=== PATIENT | male | born 1980 | race Caucasian/White ===

== ENCOUNTER 2017-02-05 13:55 | Emergency (ER) | payer MEDICAID, SELFPAY | END 2017-02-05 16:45 | disposition left against medical advice (07) | LOC: M ED 13:55 | DX: Z53.21 Procedure and treatment not carried out due to patient leaving prior to being seen by health care provider (principal) ==

== ENCOUNTER 2017-02-18 11:51 | Inpatient (IN) | payer SELFPAY ==
[~2017-02-18] VITALS: Ht 170.2 cm; Wt 61.0 kg
[2017-02-18] MEDS ORDERED: KETOROLAC 30 MG/ML VIAL (J1885) IV ONE (13:45)
[2017-02-18 14:12] LABS: BASO # 0.1 10^3/uL (0.0-0.2); BASO % 0.4 % (0.0-1.0); EOS # 0.1 10^3/uL (0.0-0.50); EOS % 0.6 % (0.0-3.0); IMMATURE GRANULOCYTE % 0.4 % (0-0); LYMPH # 2.1 10^3/uL (1.5-4.5); LYMPH % 11.7 % (24.0-44.0); MEAN CORPUSCULAR HEMOGLOBIN 31.9 pg (27.0-33.0); MEAN CORPUSCULAR HGB CONC 33.9 g/dl (32.0-36.5); MONO # 1.1 10^3/uL (0.0-0.8); MONO % 5.9 % (0.0-5.0); NEUTROPHILS # 14.5 10^3/uL (1.8-7.7); PLATELET COUNT, AUTOMATED 426 10^3/uL (150-450); WHITE BLOOD COUNT 17.9 10^3/uL (4.0-10.0)
[2017-02-18 14:18] LABS: ALBUMIN/GLOBULIN RATIO 1.08 (1.00-1.93); ALKALINE PHOSPHATASE 73 U/L (45-117); ALT/SGPT 42 U/L (12-78); ANION GAP 9 MEQ/L (8-16); AST/SGOT 34 U/L (7-37); BILIRUBIN,DIRECT 0.1 MG/DL (0.0-0.2); BILIRUBIN,TOTAL 0.5 MG/DL (0.2-1.0); BLOOD UREA NITROGEN 9 MG/DL (7-18); CALCIUM LEVEL 9.4 MG/DL (8.5-10.1); CARBON DIOXIDE LEVEL 25 MEQ/L (21-32); CHLORIDE LEVEL 104 MEQ/L (98-107); CREATININE FOR GFR 0.93 MG/DL (0.70-1.30); GLOMERULAR FILTRATION RATE > 60.0 (>60); GLUCOSE, FASTING 96 MG/DL (70-105); POTASSIUM SERUM 4.1 MEQ/L (3.5-5.1); SODIUM LEVEL 138 MEQ/L (136-145); TOTAL PROTEIN 7.7 GM/DL (6.4-8.2)
[2017-02-18] MEDS ORDERED: ISOVUE-370 76% 100ML VIAL (Q9967) As Ordered ONE (14:28)
--- NOTE | 2017-02-18 14:48 | REP ---
Clinical: Chest pain. Technique: PA and lateral. Findings: Large right pneumothorax is appreciated without significant mediastinal shift. Left hemithorax appears clear. Skeletal structures are intact. Impression: Large right pneumothorax without significant mediastinal shift at the time of evaluation. Findings were immediately discussed with emergency room. Signed by Cristhian Banda MD 02/18/2017 02:39 P
[2017-02-18] MEDS ORDERED: ONDANSETRON 4MG/2ML VIAL (J2405) IV ONE (15:00)
[2017-02-18] MEDS ORDERED: MORPHINE 4 MG/ML 1ML SYRINGE IV ONE (15:00)
--- NOTE | 2017-02-18 15:09 | REP ---
Clinical: Right chest pain. Technique: Axial contrast enhanced images from the thoracic inlet to the upper abdomen using 100 ml Isovue 370 intravenous contrast material with coronal and sagittal re-formations. Findings: A large right tension pneumothorax of approximately 70% is appreciated with mild contralateral mediastinal shift. Left apical and paramediastinal bullae are identified measuring up to 3 cm and ruptured right-sided bullae may be responsible for the pneumothorax. Left lung demonstrates mild compressive changes with subtle diffuse ground-glass density. No pleural effusion. Tracheobronchial tree is relatively patent. Pulmonary vasculature, thoracic aorta and heart/pericardium appear relatively normal. Surrounding musculoskeletal structures are intact and without evidence for acute injury. Impression: Large right tension pneumothorax of approximately 70% with mild contralateral mediastinal shift. Findings may be secondary to ruptured bulla as multiple left apical and paramediastinal bullae are identified measuring up to 3 cm. Left lung demonstrates secondary compressive type changes without further abnormality. Signed by Cristhian Banda MD 02/18/2017 03:02 P
--- NOTE | 2017-02-18 15:12 | REP ---
Clinical: Acute right-sided abdominal pain. Technique: Axial contrast enhanced images from the lung bases to the pubic symphysis using 100 ml Isovue 370 intravenous contrast material with coronal and sagittal re-formations. Findings: A large right tension pneumothorax is appreciated with mild contralateral mediastinal shift. Visualized heart and pericardium are normal. Liver, spleen, pancreas, gallbladder, bilateral adrenal glands and kidneys are normal. The enteric system is without obstruction or acute inflammatory process. The pelvis demonstrates normal bladder and age appropriate prostate/seminal vesicles. No ascites. No free air. No adenopathy. Musculoskeletal structures are intact without evidence for acute fracture. Impression: 1. Large right tension pneumothorax with mild contralateral mediastinal shift. Findings were reported to the emergency room at the time of initial x-ray evaluation. 2. No acute abdominopelvic pathology appreciated. Signed by Cristhian Banda MD 02/18/2017 03:05 P
[2017-02-18] MEDS ORDERED: LIDOCAINE 1% MDV 20ML VIAL As Ordered ONE (15:20)
[2017-02-18] MEDS ORDERED: MIDAZOLAM INJ 2 MG/2 ML VIAL (J2250) As Ordered ONE (15:28)
[2017-02-18] MEDS ORDERED: LIDOCAINE 1% MDV 20ML VIAL SC ONE (16:00)
[2017-02-18] MEDS ORDERED: MIDAZOLAM INJ 2 MG/2 ML VIAL (J2250) IV ONE (16:00)
--- NOTE | 2017-02-18 16:32 | REP ---
PORTABLE CHEST: AP portable view of the chest was performed. There is placement of a right chest tube. Previously noted large right pneumothorax has resolved. Cardiomediastinal silhouette appears unremarkable. IMPRESSION: Resolution of right pneumothorax. Right chest tube in place. Signed by Oracio Leal MD 02/18/2017 08:11 P
--- NOTE | 2017-02-18 16:43 | RO ---
DATE OF PROCEDURE: PREPROCEDURE DIAGNOSIS: Right pneumothorax. POSTPROCEDURE DIAGNOSIS: Right pneumothorax. PROCEDURE: Insertion of right thoracostomy tube. SURGEON: Dr. Westley Bloom COORDINATOR [employer] SERVICES: ANESTHESIA: Local with 1% Xylocaine. The patient was given 2 mg of intravenous Versed and 2 mg of intravenous morphine prior to the procedure. Procedure was performed emergently and verbal consent was obtained from the patient. DESCRIPTION OF PROCEDURE: After the patient was placed in the left lateral decubitus position, the right hemithorax was then prepped and draped in the usual sterile manner. Area was anesthetized with 1% Xylocaine. This anesthesia was carried through the subcuticular tissues to the periosteum and underlying rib and through the intercostal musculature. Using a #10 blade, an incision was made over rib. Using curved forceps, blunt dissection was carried to the intercostal musculature. The intercostal musculature was then traversed. A good gtz of air was noted. A #20 chest tube was then placed. This was hooked to Pleur-evac with good cycling. The tube was then sutured in place. Sterile dressings applied. The patient tolerated the procedure well. Chest x-ray done immediately postprocedure showed complete reexpansion of the right lung completed to the chest wall.
[2017-02-18] MEDS ORDERED: ceFAZolin 1GM INJ (J0690) IM SCH (16:45)
[2017-02-18] MEDS: NS 1,000 ML IV SCH (16:57)
[2017-02-18] MEDS: PERCOCET 5MG/325MG TAB PO PRN (18:38)
--- NOTE | 2017-02-18 20:07 | HPE ---
DATE OF ADMISSION: 02/18/2017 CHIEF COMPLAINT: Right sided abdominal and chest pain. HISTORY OF PRESENT ILLNESS: Mr. High is a pleasant 36-year-old gentleman who is a long time tobacco abuser. He works for a local [employer] company. He smokes about a pack a day. Social alcohol at best. Today, while driving his daughter to school, he had acute onset of right-sided discomfort. This progressed throughout the day, he became more short of breath, and presented to the emergency room (ER). He was found to have a near complete right-sided pneumothorax. ALLERGIES TO MEDICATIONS: None. PAST MEDICAL HISTORY: Unremarkable. SOCIAL HISTORY: Lives here in the [facility] with a roommate. Tobacco as outlined above. Social alcohol at best. FAMILY HISTORY: Father of lung cancer. REVIEW OF SYSTEMS: As per the history of present illness (HPI), though: CONSTITUTIONAL: Negative for any recent fevers or chills. HEENT: Unremarkable for double vision or blurry vision. PULMONARY: As per HPI. CARDIAC: Unremarkable for any angina. GASTROINTESTINAL (GI): Remarkable for nausea and vomiting. GENITOURINARY (): Unremarkable for dysuria or urgency. NEUROLOGIC: Unremarkable for seizures or strokes. ENDOCRINE: Unremarkable for diabetes or thyroid disease. HEMATOLOGIC: Unremarkable for bleeding dyscrasias. MUSCULOSKELETAL: Unremarkable for any new arthralgias or myalgias. ALLERGIC/IMMUNOLOGIC: Unremarkable. PSYCHIATRIC: Unremarkable. PHYSICAL EXAMINATION: At the time of my arrival showed a gentleman who appears his stated age in some moderate discomfort. Heart rate 45-50 with a sinus mechanism. Blood pressure between 118-124 systolic and he was diaphoretic. Respiratory rate about 18-20. HEENT: Otherwise normocephalic and atraumatic. Pupils did react. Sclerae are clear. Trachea is midline. CHEST: Shows the right chest to have absence of breath sounds, diffusely hyper-resonate to percussion, no subcutaneous crepitus. Left chest was clear. CARDIAC EXAM: Bradycardic, but regular. Peripheral pulses are palpable. No edema. ABDOMEN: Thin, soft, nontender with active bowel sounds. No obvious organomegaly or masses. EXTREMITIES: No cyanosis or clubbing. NEUROLOGIC: He is awake, alert, and appropriate. PSYCHIATRIC: Normal mood and affect. Chest x-ray and CT scan show complete collapse of the right lung without any significant mediastinal shift at this point. LABORATORY DATA: Sodium 138, potassium 4.1, chloride 104, CO2 25, BUN 9, creatinine 0.93, glucose 96, white blood cell count 17.9, hemoglobin 15.8, platelet count 426,000, 81% segmented neutrophils, no bands. EKG done in the emergency room (ER) shows a sinus bradycardia. I cannot discount an incomplete bundle on the right. IMPRESSION: Spontaneous right pneumothorax now with diaphoresis. PLAN: At this point, we will proceed with emergent placement of a right-sided chest tube. The verbal consent was obtained from the patient. This was dictated under separate cover. Tube was placed without difficulty and chest x-ray showed complete expansion of the right lung to the chest wall. No obvious leak. He will be admitted to the progressive care unit (PCU). He will be treated with maintenance IV fluids, pain control, and empiric antimicrobials. We had a long discussion regarding smoking cessation. I will repeat a CT scan of his chest to assess for significant blebs or other anatomic issues. He will be here more than two midnights. Further recommendations will be made in the progress record as new information becomes available.
[2017-02-18] MEDS ORDERED: ONDANSETRON 4MG/2ML VIAL (J2405) IV PRN (21:30)
[2017-02-18 21:45] VITALS: BP 101/57
[2017-02-18] MEDS: CEFAZOLIN SOD 1 GM in APPROPRIATE DILUENT 1 EA IV SCH (22:59)
[2017-02-19] VITALS: BP 114/58
[2017-02-19] MEDS ORDERED: ceFAZolin 1GM INJ (J0690) IV SCH (00:45)
[2017-02-19] MEDS: PERCOCET 5MG/325MG TAB PO PRN ×4 (01:37→20:10)
[2017-02-19 04:00] VITALS: BP 114/58
[2017-02-19 05:04] LABS: BASO % 0.2 % (0.0-1.0); IMMATURE GRANULOCYTE % 0.5 % (0-0); LYMPH # 1.5 10^3/uL (1.5-4.5); LYMPH % 5.6 % (24.0-44.0); MEAN CORPUSCULAR HEMOGLOBIN 31.6 pg (27.0-33.0); MEAN CORPUSCULAR HGB CONC 33.8 g/dl (32.0-36.5); MEAN CORPUSCULAR VOLUME 93.6 fl (80.0-96.0); MONO # 0.9 10^3/uL (0.0-0.8); MONO % 3.4 % (0.0-5.0); NEUTROPHILS # 23.4 10^3/uL (1.8-7.7); NEUTROPHILS % 90.3 % (36.0-66.0); PLATELET COUNT, AUTOMATED 396 10^3/uL (150-450); WHITE BLOOD COUNT 25.9 10^3/uL (4.0-10.0)
[2017-02-19 05:19] LABS: ANION GAP 8 MEQ/L (8-16); BLOOD UREA NITROGEN 13 MG/DL (7-18); CALCIUM LEVEL 9.1 MG/DL (8.5-10.1); CARBON DIOXIDE LEVEL 25 MEQ/L (21-32); CHLORIDE LEVEL 104 MEQ/L (98-107); CREATININE FOR GFR 0.92 MG/DL (0.70-1.30); GLOMERULAR FILTRATION RATE > 60.0 (>60); GLUCOSE, FASTING 115 MG/DL (70-105); POTASSIUM SERUM 4.4 MEQ/L (3.5-5.1); SODIUM LEVEL 137 MEQ/L (136-145)
[2017-02-19] MEDS: CEFAZOLIN SOD 1 GM in APPROPRIATE DILUENT 1 EA IV SCH ×3 (06:39→21:40)
[2017-02-19 08:00] VITALS: BP 127/71
[2017-02-19] MEDS: NS 1,000 ML IV SCH ×2 (08:00→19:40)
[2017-02-19] MEDS: ENOXAPARIN 30 MG/0.3 ML SYR (J1650) SC SCH (08:17)
--- NOTE | 2017-02-19 08:30 | ECGEPIP ---
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
[2017-02-19] MEDS: NICOTINE 14 MG/24 HR TRANSDERMAL TD SCH (09:00)
[2017-02-19] MEDS: PANTOPRAZOLE 40MG TAB (PROTONIX) PO SCH (09:11)
[2017-02-19] MEDS: ACETAMINOPHEN 500 MG TAB PO PRN ×2 (09:12→19:03)
[2017-02-19 12:07] VITALS: BP 115/66
--- NOTE | 2017-02-19 14:56 | REP ---
CT CHEST WITHOUT IV CONTRAST: CT chest is performed without IV contrast. Comparison is made with prior CT angiogram of the chest 02/18/2017. Previously noted pneumothorax has almost completely resolved with placement of a right chest tube located in a right anterior pleural space. There is a tiny residual pneumothorax on the right inferiorly and anteriorly. Mild bibasilar atelectatic changes are present. Tiny right apical pneumothorax is present. There are small right apical parenchymal blebs and bullae. Mild bullous change is also seen medially in right upper lobe. On the left there is a moderate sized bulla along the pulmonary trunk in the left upper lobe. Bullous change is also seen medially in the right apex and other portions of the left upper lobe. Heart is normal in size. There is no pleural or pericardial effusion. No adenopathy is seen. Visualized upper abdominal structures are grossly unremarkable. IMPRESSION: Right chest tube in place with tiny residual right pneumothorax. Mild bibasilar atelectatic changes. Bilateral bullous changes predominantly medially and superiorly as discussed in detail above. Signed by Oracio Leal MD 02/19/2017 11:58 A
--- NOTE | 2017-02-19 14:57 | REP ---
PORTABLE CHEST: AP portable view of the chest is performed and compared to a prior study 02/18/2017. Right chest tube is again noted. There is a very tiny right apical pneumothorax. Lungs are free of infiltrate. Cardiomediastinal silhouette is unremarkable. Signed by Oracio Leal MD 02/19/2017 04:17 P
[2017-02-19 16:00] VITALS: BP 127/63
[2017-02-19 20:00] VITALS: BP 134/79
[2017-02-20] VITALS (8 sets, daily range): BP systolic 108–130; BP diastolic 42–76
[2017-02-20] MEDS: CEFAZOLIN SOD 1 GM in APPROPRIATE DILUENT 1 EA IV SCH (05:38)
[2017-02-20] MEDS: ACETAMINOPHEN 500 MG TAB PO PRN (05:45)
[2017-02-20] MEDS: NICOTINE 14 MG/24 HR TRANSDERMAL TD SCH ×2 (08:26→11:22)
[2017-02-20] MEDS: ENOXAPARIN 30 MG/0.3 ML SYR (J1650) SC SCH (08:26)
[2017-02-20] MEDS: PANTOPRAZOLE 40MG TAB (PROTONIX) PO SCH (08:26)
[2017-02-20] MEDS: NS 1,000 ML IV SCH (09:25)
--- NOTE | 2017-02-20 10:03 | REP ---
PORTABLE CHEST: AP portable view of the chest is performed. Right chest tube is again noted and there appears to be a very tiny right pneumothorax. No acute infiltrate or other acute finding is seen. Cardiomediastinal silhouette is unchanged. IMPRESSION: Stable exam. Signed by Oracio Leal MD 02/20/2017 05:30 P
[2017-02-20] MEDS: PERCOCET 5MG/325MG TAB PO PRN (11:21)
--- NOTE | 2017-02-20 12:27 | REP ---
PORTABLE CHEST: AP portable view of the chest is performed and compared to prior study of 02/19/2017. Right chest tube appears more inferiorly located on today's exam and there is mild right apical pneumothorax which has increased since prior study. Lungs are unchanged in appearance as is the cardiomediastinal silhouette. Signed by Oracio Leal MD 02/20/2017 05:35 P
[2017-02-20] MEDS ORDERED: MORPHINE 4 MG/ML 1ML SYRINGE As Ordered ONE (12:55)
[2017-02-20] MEDS ORDERED: MORPHINE 4 MG/ML 1ML SYRINGE IV ONE (13:00)
[2017-02-20] MEDS: KETOROLAC 30 MG/ML VIAL (J1885) IV SCH ×2 (13:15→19:48)
--- NOTE | 2017-02-20 13:59 | REP ---
CHEST, TWO VIEWS: Two views of the chest are performed and compared to prior exams, most recent of which is earlier today. There is a small stable right apical pneumothorax. Right chest tube remains in place. The remainder of the study is unchanged. IMPRESSION: Stable exam. Signed by Oracio Leal MD 02/20/2017 05:38 P
[2017-02-21] VITALS (7 sets, daily range): BP systolic 112–143; BP diastolic 60–80
[2017-02-21] MEDS: PERCOCET 5MG/325MG TAB PO PRN (00:03)
[2017-02-21] MEDS: KETOROLAC 30 MG/ML VIAL (J1885) IV SCH ×5 (00:05→23:51)
[2017-02-21] MEDS: MORPHINE 2 MG/ML 1ML SYRINGE IV PRN ×3 (04:13→11:47)
[2017-02-21 06:38] LABS: BASO # 0.1 10^3/uL (0.0-0.2); BASO % 0.8 % (0.0-1.0); EOS # 0.4 10^3/uL (0.0-0.50); EOS % 3.6 % (0.0-3.0); IMMATURE GRANULOCYTE % 0.5 % (0-0); LYMPH # 3.5 10^3/uL (1.5-4.5); LYMPH % 32.5 % (24.0-44.0); MEAN CORPUSCULAR HEMOGLOBIN 31.8 pg (27.0-33.0); MEAN CORPUSCULAR HGB CONC 33.1 g/dl (32.0-36.5); MEAN CORPUSCULAR VOLUME 96.1 fl (80.0-96.0); MONO # 0.9 10^3/uL (0.0-0.8); MONO % 7.8 % (0.0-5.0); NEUTROPHILS # 5.9 10^3/uL (1.8-7.7); NEUTROPHILS % 54.8 % (36.0-66.0); PLATELET COUNT, AUTOMATED 324 10^3/uL (150-450); WHITE BLOOD COUNT 10.8 10^3/uL (4.0-10.0)
--- NOTE | 2017-02-21 07:24 | CR ---
DATE OF CONSULTATION: 02/20/2017 Patient is seen at the request of Dr. Bloom for assumption of care for spontaneous pneumothorax relieved with a chest tube. HISTORY OF PRESENT ILLNESS: Patient is a 36-year-old white male who on Tuesday morning was driving his daughter to school and who then developed sudden onset of chest pain and shortness of breath. He made it home and for the next 4 hours became more and more short of breath and presented to the emergency room diaphoretic with a completely collapsed right lung. Dr. Bloom immediately placed a chest tube with complete expansion of the lung. Prior to his episode, there was no cough. No sputum production. He has had no chest pain or chest discomfort prior to the episode. There has been no fever, chills or sweats. No dysphagia. No weight loss. He does not complain of shortness of breath prior to his episode. PAST MEDICAL ILLNESSES: None. PAST SURGERIES: None. MEDICATIONS AT HOME: None. HABITS: Smokes about one pack per day but he has cut back to one-half pack per day of [employer]. Drinks maybe a beer a day. No elicit drugs. EXPOSURES: He has a cat at home. No dogs or birds. He has a positive travel history of [place] and throughout the [facility]. No travel to the [facility] or foreign travel. 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 FAMILY HISTORY: Not relevant. REVIEW OF SYSTEMS: Constitutional: See history of present illness. Eyes: Without diplopia, without transient monocular blindness, without prior jaundice. Nose without epistaxis. Mouth: Has his own teeth and needs repair. Respirations: See history of present illness. Cardiac: See history of present illness. Without orthopnea, paroxysmal nocturnal dyspnea, tachycardia or palpitations prior to the episode. Without peripheral edema or intermittent claudication. Gastrointestinal (GI): Without nausea, vomiting, diarrhea, constipation, melena, hematochezia, abdominal pain or hematemesis. Genitourinary (): Without dysuria, hematuria or history of renal stones. Endocrine: Without diabetes. Without thyroid disease. Neurological: Without paresthesias, paralysis or prior seizures. Psychiatric: Without pathological anxieties, depressions or psychoses. Lymphatics: Without lumps or bumps in the neck, axilla or groin. Hematological: Without prolonged bleeding times. PHYSICAL EXAMINATION: Today his temperature is 99.0 with a heart rate of 54 in sinus rhythm, respiratory rate of 18 without the use of accessory muscles who is 98% saturated on room air and his blood pressure is 108/74. General: Well developed, well nourished white male in no acute distress with a chest tube in his right hemithorax. Head is normocephalic. Eyes: Pupils equal, round, and reactive to light. Extraocular intact. Sclera anicteric. Nose without deformity. Mouth: Has most of his own teeth. Many eroded and decayed. Mucous membranes are pink and moist. Lips and commissures without lesions. There is no thrush. Neck is supple. There is no jugular venous distention. No subcutaneous emphysema. Trachea is midline. There is no thyromegaly, lymphadenopathy. He has 2+ carotids without bruits. Lungs show equal breath sounds on either side with percussion note that is full to the diaphragm. There is no E to A egophony. I hear no wheezes, rhonchi or rales. Cardiac exam is without murmurs, clicks, gallops or rubs. I cannot feel his PMI. S1 and S2 are normal. Abdomen is soft, nontender, bowel sounds are positive. There is no hepatomegaly. No CVA tenderness. There are no aortic or renal bruits. Extremities show no pretibial edema. No calf tenderness. No differential swelling of the upper extremities. Skin is warm, dry and perfused without cyanosis or mottling including that of the nail beds and knees. Neuro shows II through XII intact with gross motor and gross sensation intact. Gait is also intact. Psychiatric shows him to be awake and alert, oriented times three with appropriate mood and affect and conversational. INVESTIGATIONS: His white count today is 25.9 up from 17.9 yesterday. Hemoglobin and hematocrit are 14.8 and 43.8 slightly down from 15.8 and 46.6. His intake and output shows a positivity of 400 mL and this may be secondary to hemodilution. His platelet count is 396 and his differential shows 90% neutrophils, 5% lymphocytes, 4% monocytes. There are no immature forms. No toxic granulations. Electrolytes today are normal with BUN and creatinine of 13 and 0.92, a glucose of 115 and a calcium of 9.1. No blood gases have been done on him. His chest x-ray today shows his lung fully expanded to the chest wall. It is done portably. Surprisingly, I see no subcutaneous emphysema. Review of his CAT scan yesterday after placement of the chest tube shows multiple bullae particularly on the left side. He also has multiple blebs throughout the right side with emphysematous changes. There is a small ground glass nodule approximately 3 mm in the right upper lobe. Liver is intact. Adrenals have a normal configuration. There is still some compression atelectasis in the right lower hemithorax in the costophrenic angle. IMPRESSION: 1. Spontaneous pneumothorax. 2. Emphysematous changes. 3. Tobacco abuse. PLAN AND DISCUSSION: His chest tube is already in place. It has migrated into the mid hemothorax after being placed permanently into the apex originally. His costophrenic angles are sharp and there is no subcutaneous emphysema. He did have a one bubble air leak today and therefore I have kept the tube off suction. I have counseled him extensively on tobacco use and he is committed to stopping smoking. I have explained to him that if he stops leaking, we will pull the tube and let him go home with a one in three chance of it happening again. If it happens a second time, we will be committed to the operating room. There is a problem with insurance and he is very worried about the financial implications of this admission. He has refused the Lovenox deep venous thrombosis (DVT) prophylaxis. I will start him on incentive spirometry and acapella for lung expansion. Dr. Bloom has asked me to assume care and I am glad to do so. We will keep him off suction and ambulate him today. If there is no air leak tomorrow, I will remove the chest tube tomorrow. I will change his x-rays to PA lateral's.
--- NOTE | 2017-02-21 08:22 | REP ---
Clinical: Pneumothorax. Comparison: 02/20/2017. Technique: PA and lateral. Findings: Right-sided chest tube in stable position. Small residual right apical pneumothorax unchanged. Mediastinum and cardiac silhouette are within normal limits. Chronic perihilar and interstitial changes appear stable. No effusion. No consolidation. Skeletal structures intact. Impression: Small stable residual right apical pneumothorax. Signed by Cristhian Banda MD 02/21/2017 08:13 A
[2017-02-21] MEDS: ENOXAPARIN 30 MG/0.3 ML SYR (J1650) SC SCH ×3 (08:47→09:00)
[2017-02-21] MEDS: PANTOPRAZOLE 40MG TAB (PROTONIX) PO SCH (08:47)
[2017-02-21] MEDS: NICOTINE 14 MG/24 HR TRANSDERMAL TD SCH ×3 (08:48→09:00)
--- NOTE | 2017-02-21 13:57 | IPN ---
DATE OF SERVICE: 02/21/2017 Mr. High had an episode yesterday of sharp chest pain. He was brought down to x-ray and at the time, I did not think he had pneumothorax, but in retrospect, he had a small separation at the apex. He was given pain medications and that controlled the pain. He was not particularly short of breath. This morning however, he feels very well. There is no chest pain, no pleuritic pain. He has been off suction for the past 48 hours and there is no air leak. His vital signs show T-max of 98.2 with a heart rate that ranges between 57-52 in sinus rhythm, respiratory rate of 16-18 without the use of accessory muscles who is 96% saturated on room air and has blood pressures ranging between 118-76 to 121/73. His intake and output for the past 24 hours has been recorded as 1740 in and nothing out. He has had a number of voids unmeasured. He weighs 61.2 kg today compared to 60.7 kg yesterday. On physical examination, his lungs show equal bilateral breath sounds. Percussion note is full to the diaphragm. There are no wheezes, rhonchi or rales. Cardiac exam is without murmurs, clicks, gallops or rubs. I cannot feel his PMI. S1 and S2 are normal. Abdomen is soft, nontender, bowel sounds are positive. There is no hepatomegaly. No CVA tenderness. Extremities show no pretibial edema. No calf tenderness. No differential swelling of the upper extremities. Skin is warm, dry and perfused without cyanosis or mottling including that of the nail beds and knees. Neck is supple. There is no jugular venous distention. No subcutaneous emphysema. Trachea is midline. Mouth shows his mucous membranes to be pink and moist. Lips and commissures are without lesions. No thrush. Eyes show his pupils to be equal and reactive. Extraocular motor intact. Sclera anicteric. Neuro shows II through XII intact with gross motor and gross sensation intact. Gait is intact. Psychiatric shows him to be awake and alert, oriented times three with appropriate mood and affect and conversational. His white count today is down to 10.8 from 25.9 yesterday. Hemoglobin and hematocrit are 13.9 and 42 essentially unchanged from yesterday with a platelet count of 324. Differential shows 54% neutrophils, 32% lymphocytes, 7% monocytes. There are no immature forms. No toxic granulations. His electrolytes are normal with a BUN and creatinine of 13 and 0.92 with a calcium of 9.1 and a glucose of 115. His chest x-ray today shows about a 1 cm separation at the cupula of the right chest. Otherwise the lung is fully expanded to the chest wall. There is no subcutaneous emphysema. Chest tube is in the mid lung field. Costophrenic angles are sharp. IMPRESSION: 1. Spontaneous pneumothorax right side. 2. Emphysematous changes. 3. Tobacco abuse. PLAN AND DISCUSSION: I will remove his chest tube today. I have discussed with him the possibility of the pneumothorax recurring in the next 24 hours over the next few months. At this point in time, this is a first time pneumothorax and I am not going to recommend any intervention. I will tentatively plan for discharge in the morning.
--- NOTE | 2017-02-21 14:19 | REP ---
Clinical: Follow up pneumothorax. Comparison: 02/19/2017. Findings: Right apical chest tube in stable position. A minuscule residual right apical pneumothorax cannot be excluded. The lung mcdonald are otherwise well aerated and clear. No effusion. Mediastinum and cardiac silhouette are normal. Skeletal structures are intact. Impression: Cannot exclude a minuscule residual right apical pneumothorax. Signed by Cristhian Banda MD 02/21/2017 02:11 P
[2017-02-21] MEDS: ACETAMINOPHEN 500 MG TAB PO PRN (23:51)
[2017-02-22 04:45] VITALS: BP 120/55
[2017-02-22] MEDS: KETOROLAC 30 MG/ML VIAL (J1885) IV SCH (06:01)
[2017-02-22 06:10] LABS: BASO # 0.1 10^3/uL (0.0-0.2); BASO % 0.5 % (0.0-1.0); EOS # 0.4 10^3/uL (0.0-0.50); EOS % 4.7 % (0.0-3.0); IMMATURE GRANULOCYTE % 0.4 % (0-0); LYMPH # 3.3 10^3/uL (1.5-4.5); LYMPH % 35.5 % (24.0-44.0); MEAN CORPUSCULAR HGB CONC 33.6 g/dl (32.0-36.5); MEAN CORPUSCULAR VOLUME 95.2 fl (80.0-96.0); MONO # 0.8 10^3/uL (0.0-0.8); MONO % 8.4 % (0.0-5.0); NEUTROPHILS # 4.7 10^3/uL (1.8-7.7); NEUTROPHILS % 50.5 % (36.0-66.0); PLATELET COUNT, AUTOMATED 327 10^3/uL (150-450); RED CELL DISTRIBUTION WIDTH 12.6 % (11.5-14.5); WHITE BLOOD COUNT 9.3 10^3/uL (4.0-10.0)
[2017-02-22 08:00] VITALS: BP 130/73
--- NOTE | 2017-02-22 08:50 | REP ---
Clinical: Follow up pneumothorax . Comparison: 02/21/2017 . Technique: PA and lateral. Findings: Small residual right apical pneumothorax appears slightly decreased compared to prior examination. The mediastinum and cardiac silhouette are normal. The lung mcdonald are otherwise clear and without acute consolidation or effusion. The skeletal structures are intact and normal. Impression: 1. Small residual right apical pneumothorax decreased from prior examination. 2. No acute cardiopulmonary process. Signed by Cristhian Banda MD 02/22/2017 08:41 A
[2017-02-22] MEDS: ENOXAPARIN 30 MG/0.3 ML SYR (J1650) SC SCH (09:00)
[2017-02-22] MEDS: NICOTINE 14 MG/24 HR TRANSDERMAL TD SCH (09:00)
[2017-02-22] MEDS: PANTOPRAZOLE 40MG TAB (PROTONIX) PO SCH (09:00)
[2017-02-22 12:00] VITALS: BP 132/79
[2017-02-22] MEDS ORDERED: NICO14PA TD (13:26)
--- NOTE | 2017-02-22 14:59 | DSES ---
DATE OF ADMISSION: 02/18/2017 DATE OF DISCHARGE: 02/22/2017 DISCHARGE DIAGNOSES: 1. Spontaneous right pneumothorax. 2. Emphysema. 3. Tobacco abuse. 4. Right upper lobe nodule of no significance. HOSPITAL COURSE: The patient is a 36-year-old white male who sought medical attention in the emergency room on 02/18/2017 after he had acute onset of right sided chest pain while driving his daughter to school. It became worse with increasing shortness of breath and he presented to the emergency room with a complete pneumothorax on the right side. Dr. Bloom placed a chest tube with immediate reexpansion of the lung. A followup CT scan showed bulla and emphysematous changes throughout his lungs. 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 Considerable time was spent with tobacco abuse counseling and he has undertaken to quit smoking. The chest tube had a small leak for 2-3 days after which it was removed. The lung remained expanded to the chest wall except for a small apical air space, which persisted, and in fact was getting smaller at the time of discharge. The patient is being discharged today on a nicotine patch along with Tylenol or Aleve as needed for pain. He will return to see me in one week with a chest x-ray. He was also found to have a small right upper lobe nodule, which will be followed in three months with a CT scan. The patient has once again been counseled for tobacco cessation. He will followup with Dr. Bloom for the pulmonary nodule in three months with a CT scan.
== END 2017-02-22 13:46 | disposition home or self-care (01) | DRG 143 ==
LOC: M ED 11:51 → M ED INP 16:01 → M PCU 20:34
PROVIDERS: ADMIT Internal Medicine Pulmonary Disease; ATTEND Thoracic Surgery (Cardiothoracic Vascular Surgery)
PROC: 0W9930Z Drainage of Right Pleural Cavity with Drainage Device, Percutaneous Approach (ICD-10-PCS; principal; 2017-02-18)
DX: J93.83 Other pneumothorax (principal); F17.210 Nicotine dependence, cigarettes, uncomplicated; R11.2 Nausea with vomiting, unspecified; J43.9 Emphysema, unspecified; R91.1 Solitary pulmonary nodule

== ENCOUNTER → 2017-03-07 | Outpatient (CLI) | payer SELFPAY ==
[~2017-03-07] MED LIST: NICO14PA TD
--- NOTE | 2017-03-08 04:30 | REP ---
Clinical: Pneumothorax . Comparison: 02/22/2017 . Technique: PA and lateral. Findings: The mediastinum and cardiac silhouette are normal. The lung mcdonald are clear and without acute consolidation, effusion, or pneumothorax. The skeletal structures are intact and normal. Impression: 1. No acute cardiopulmonary process. 2. No residual pneumothorax identified. Signed by Cristhian Banda MD 03/08/2017 04:21 A
== END ==
LOC: M SMT 08:50
PROVIDERS: ATTEND Thoracic Surgery (Cardiothoracic Vascular Surgery)
DX: P25.1 Pneumothorax originating in the perinatal period (principal)

== ENCOUNTER 2019-01-16 12:32 | Emergency (ER) | payer MEDICAID, SELFPAY ==
[~2019-01-16] VITALS: Ht 172.7 cm; Wt 70.5 kg
[2019-01-16 12:32] VITALS: BP 142/89
[2019-01-16] MEDS ORDERED: IBUP-1022 PO (12:50)
[2019-01-16] MEDS ORDERED: ACET-683 PO (12:50)
== END 2019-01-16 15:04 | disposition left against medical advice (07) ==
LOC: M ED 12:32
DX: Z53.21 Procedure and treatment not carried out due to patient leaving prior to being seen by health care provider (principal)

== ENCOUNTER 2021-04-07 11:25 | Inpatient (IN) | payer OTHER, SELFPAY ==
[~2021-04-07] VITALS: Ht 172.7 cm; Wt 63.8 kg
[~2021-04-07 11:25] MED LIST changes: +ACET-683 PO; +IBUP-1022 PO
[2021-04-07] MEDS ORDERED: MORPHINE 2 MG/ML 1ML VIAL (J2270) IV ONE (12:55)
[2021-04-07 13:11] LABS: BASO # 0.1 10^3/uL (0.0-0.2); BASO % 0.2 % (0.0-1.0); HEMATOCRIT 49.3 % (42.0-52.0); HEMOGLOBIN 16.8 g/dl (13.5-17.5); LYMPH # 1.9 10^3/uL (1.5-5.0); LYMPH % 7.8 % (24.0-44.0); MEAN CORPUSCULAR HGB CONC 34.1 g/dl (32.0-36.5); MONO # 2.2 10^3/uL (0.0-0.8); MONO % 9.1 % (2.0-8.0); NEUTROPHILS # 20.1 10^3/uL (1.5-8.5); NEUTROPHILS % 82.3 % (36.0-66.0); PLATELET COUNT, AUTOMATED 495 10^3/uL (150-450); RED BLOOD COUNT 5.42 10^6/uL (4.30-6.10); WHITE BLOOD COUNT 24.4 10^3/uL (4.0-10.0)
[2021-04-07 13:51] LABS: ALBUMIN 5.2 GM/DL (3.2-5.2); BILIRUBIN,DIRECT 0.1 MG/DL (0.0-0.2); BILIRUBIN,TOTAL 0.5 MG/DL (0.2-1.0); CALCIUM LEVEL 10.5 MG/DL (8.5-10.1); CREATININE FOR GFR 3.47 MG/DL (0.70-1.30); GLOMERULAR FILTRATION RATE 21.1 (>60); POTASSIUM SERUM 3.6 MEQ/L (3.5-5.1); RSV AMPLIFICATION NEGATIVE (NEGATIVE); TOTAL PROTEIN 9.1 GM/DL (6.4-8.2)
[2021-04-07] MEDS ORDERED: GASTROGRAFIN SOLUTION 30ML (Q9963) As Ordered ONE (14:26)
[2021-04-07] MEDS: GASTROGRAFIN SOLUTION 30ML PO SCH ×2 (14:30→15:00)
[2021-04-07] MEDS ORDERED: PROMETHAZINE INJ 25 MG/ML VIAL (J2550) IV ONE (16:30)
[2021-04-07] MEDS ORDERED: NS 1,000 ML IV ONE (16:30)
[2021-04-07] MEDS ORDERED: ACETAMINOPHEN TAB 650MG DOSE (2X325MG) PO PRN (17:25)
[2021-04-07] MEDS ORDERED: cefTRIAXone SOD 1 GM in D5W MINI-BAG PLUS 50 ML IV SCH (19:00)
[2021-04-07] MEDS: NS 1,000 ML IV SCH (19:16)
[2021-04-07 22:40] VITALS: BP 109/53
[2021-04-08] MEDS: NS 1,000 ML IV SCH ×2 (01:55→09:14)
[2021-04-08 06:00] VITALS: BP 107/54
[2021-04-08 06:43] LABS: HEMATOCRIT 41.9 % (42.0-52.0); MEAN CORPUSCULAR HEMOGLOBIN 31.5 pg (27.0-33.0); MEAN CORPUSCULAR HGB CONC 34.1 g/dl (32.0-36.5); MEAN CORPUSCULAR VOLUME 92.3 fl (80.0-96.0); RED BLOOD COUNT 4.54 10^6/uL (4.30-6.10); WHITE BLOOD COUNT 12.7 10^3/uL (4.0-10.0)
[2021-04-08 07:04] LABS: HEMOGLOBIN 14.3 g/dl (13.5-17.5); PLATELET COUNT, AUTOMATED 380 10^3/uL (150-450)
[2021-04-08 07:16] LABS: ALBUMIN 3.6 GM/DL (3.2-5.2); ALT/SGPT 31 U/L (12-78); BILIRUBIN,TOTAL 0.5 MG/DL (0.2-1.0); BLOOD UREA NITROGEN 23 MG/DL (7-18); CALCIUM LEVEL 8.6 MG/DL (8.5-10.1); CARBON DIOXIDE LEVEL 26 MEQ/L (21-32); CHLORIDE LEVEL 106 MEQ/L (98-107); CREATININE FOR GFR 1.15 MG/DL (0.70-1.30); GLOMERULAR FILTRATION RATE > 60.0 (>60); GLUCOSE, FASTING 94 MG/DL (70-100); MAGNESIUM LEVEL 2.6 MG/DL (1.8-2.4); SODIUM LEVEL 138 MEQ/L (136-145); TOTAL PROTEIN 6.5 GM/DL (6.4-8.2)
[2021-04-08] MEDS ORDERED: NICOTINE 14 MG/24 HR TRANSDERMAL TD SCH (09:00)
[2021-04-08] MEDS ORDERED: DOXY-350 PO (09:46)
[2021-04-08] MEDS ORDERED: CEFD1CAP8 PO (09:46)
[2021-04-08] MEDS ORDERED: NICO14DI3 TOP (09:46)
== END 2021-04-08 14:41 | disposition home or self-care (01) | DRG 469 ==
LOC: EDBD 11:25 → M ED 11:25 → M ED INP 17:19 → M MSPAV 22:40
PROVIDERS: ADMIT Internal Medicine; ATTEND Internal Medicine
DX: N17.9 Acute kidney failure, unspecified (principal); E86.0 Dehydration; R11.2 Nausea with vomiting, unspecified; R19.7 Diarrhea, unspecified; F17.200 Nicotine dependence, unspecified, uncomplicated; Z20.822 Contact with and (suspected) exposure to COVID-19; F12.10 Cannabis abuse, uncomplicated

== ENCOUNTER 2023-06-19 12:55 | Emergency (ER) | payer OTHER ==
[~2023-06-19] VITALS: Ht 172.7 cm; Wt 61.4 kg
[~2023-06-19 12:55] MED LIST changes: +CEFD1CAP9 PO; +DOXY-444 PO; +NICO14DI3 TOP
[2023-06-19 13:47] LABS: BASO % 0.3 % (0.0-1.0); EOS # 0.1 10^3/uL (0.0-0.5); EOS % 0.9 % (0.0-3.0); HEMATOCRIT 46.3 % (42.0-52.0); HEMOGLOBIN 16.2 g/dl (13.5-17.5); LYMPH # 2.9 10^3/uL (1.5-5.0); LYMPH % 23.1 % (24.0-44.0); MEAN CORPUSCULAR HEMOGLOBIN 31.9 pg (27.0-33.0); MEAN CORPUSCULAR VOLUME 91.1 fl (80.0-96.0); MONO # 1.2 10^3/uL (0.0-0.8); MONO % 9.2 % (2.0-8.0); NEUTROPHILS # 8.4 10^3/uL (1.5-8.5); NEUTROPHILS % 66.3 % (36.0-66.0); PLATELET COUNT, AUTOMATED 375 10^3/uL (150-450); RED BLOOD COUNT 5.08 10^6/uL (4.30-6.10); WHITE BLOOD COUNT 12.6 10^3/uL (4.0-10.0)
[2023-06-19 14:12] LABS: BILIRUBIN,DIRECT 0.2 MG/DL (<0.4); TOTAL PROTEIN 6.7 G/DL (5.7-8.2)
[2023-06-19] MEDS: ONDANSETRON 4MG 2ML VIAL IV ONE (14:30)
[2023-06-19] MEDS: NS 1,000 ML IV ONE (14:30)
[2023-06-19] MEDS: MAALOX 30 ML SUSP *UDC PO ONE (15:48)
[2023-06-19] MEDS: HYOSCYAMINE SULFATE 0.125 MG SUBL TABLET SL ONE (15:48)
[2023-06-19] MEDS ORDERED: ISOVUE-370 76% 100ML VIAL As Ordered ONE (17:50)
[2023-06-19] MEDS ORDERED: ONDA4TAB6 PO (19:53)
[2023-06-19 20:15] VITALS: BP 152/77; TEMP 98; O2SAT 97
[2023-06-19] MEDS: ONDANSETRON 4MG ORAL DISINTEGRATING TAB PO ONE (20:24)
== END 2023-06-19 20:27 | disposition home or self-care (01) ==
LOC: M ED 12:55
DX: R11.2 Nausea with vomiting, unspecified (principal); F17.210 Nicotine dependence, cigarettes, uncomplicated; F10.10 Alcohol abuse, uncomplicated; F12.10 Cannabis abuse, uncomplicated; Z79.899 Other long term (current) drug therapy
CPT/HCPCS: 74177; 80047; 80076; 83690; 85025; 96374; 99284; J2405; Q9967

== ENCOUNTER 2023-08-11 23:24 | Emergency (ER) | payer OTHER ==
[~2023-08-11] VITALS: Ht 172.7 cm; Wt 60.8 kg
[~2023-08-11 23:24] MED LIST changes: +DOXY-440 PO; -DOXY-444 PO; +ONDA4TAB6 PO
[2023-08-11 23:26] VITALS: BP 126/91; TEMP 98.9; O2SAT 99
[2023-08-12 00:43] LABS: ALBUMIN 5.1 G/DL (3.2-5.2); BILIRUBIN,TOTAL 0.7 MG/DL (0.3-1.2); CALCIUM LEVEL 10.7 MG/DL (8.5-10.1); CREATININE FOR GFR 2.55 MG/DL (0.70-1.30); GLOMERULAR FILTRATION RATE 29.6 (>60); POTASSIUM SERUM 3.8 MMOL/L (3.5-5.1); TOTAL PROTEIN 9.1 G/DL (5.7-8.2)
[2023-08-12 00:56] LABS: BASO # 0.1 10^3/uL (0.0-0.2); BASO % 0.4 % (0.0-1.0); HEMATOCRIT 53.2 % (42.0-52.0); LYMPH # 2.2 10^3/uL (1.5-5.0); LYMPH % 7.4 % (24.0-44.0); MEAN CORPUSCULAR HEMOGLOBIN 31.8 pg (27.0-33.0); MEAN CORPUSCULAR HGB CONC 35.7 g/dl (32.0-36.5); MONO # 1.9 10^3/uL (0.0-0.8); MONO % 6.6 % (2.0-8.0); NEUTROPHILS # 24.8 10^3/uL (1.5-8.5); PLATELET COUNT, AUTOMATED 475 10^3/uL (150-450); RED BLOOD COUNT 5.98 10^6/uL (4.30-6.10); WHITE BLOOD COUNT 29.2 10^3/uL (4.0-10.0)
[2023-08-12 01:34] LABS: AMPHETAMINES LEVEL URINE NEGATIVE (NEGATIVE)
[2023-08-12 01:35] LABS: BARBITURATES URINE NEGATIVE (NEGATIVE); BENZODIAZEPINES URINE NEGATIVE (NEGATIVE); METHADONE URINE NEGATIVE (NEGATIVE); OPIATES URINE NEGATIVE (NEGATIVE); PHENCYCLIDINE URINE NEGATIVE (NEGATIVE)
[2023-08-12 02:02] LABS: CANNABINOIDS URINE POSITIVE (NEGATIVE); COCAINE METABOLITE URINE POSITIVE (NEGATIVE)
== END 2023-08-12 01:02 | disposition left against medical advice (07) ==
LOC: M ED 23:24
DX: Z53.21 Procedure and treatment not carried out due to patient leaving prior to being seen by health care provider (principal)

== ENCOUNTER 2023-08-12 04:13 | Observation (INO) | payer OTHER ==
[~2023-08-12] VITALS: Ht 172.7 cm; Wt 60.8 kg
[2023-08-12] MEDS: NS 1,000 ML IV ONE ×2 (05:31→07:01)
[2023-08-12 05:40] LABS: BASO # 0.1 10^3/uL (0.0-0.2); BASO % 0.3 % (0.0-1.0); HEMATOCRIT 47.7 % (42.0-52.0); HEMOGLOBIN 17.1 g/dl (13.5-17.5); LYMPH # 1.5 10^3/uL (1.5-5.0); MEAN CORPUSCULAR HEMOGLOBIN 31.7 pg (27.0-33.0); MEAN CORPUSCULAR HGB CONC 35.8 g/dl (32.0-36.5); MEAN CORPUSCULAR VOLUME 88.5 fl (80.0-96.0); MONO # 2.1 10^3/uL (0.0-0.8); MONO % 7.1 % (2.0-8.0); NEUTROPHILS % 86.9 % (36.0-66.0); PLATELET COUNT, AUTOMATED 424 10^3/uL (150-450); RED BLOOD COUNT 5.39 10^6/uL (4.30-6.10); WHITE BLOOD COUNT 29.9 10^3/uL (4.0-10.0)
[2023-08-12 06:02] LABS: ALBUMIN 4.4 G/DL (3.2-5.2); BILIRUBIN,DIRECT 0.2 MG/DL (<0.4); BILIRUBIN,TOTAL 0.6 MG/DL (0.3-1.2); CALCIUM LEVEL 8.9 MG/DL (8.5-10.1); CREATININE FOR GFR 2.07 MG/DL (0.70-1.30); GLOMERULAR FILTRATION RATE 37.7 (>60); POTASSIUM SERUM 3.3 MMOL/L (3.5-5.1); TOTAL PROTEIN 7.6 G/DL (5.7-8.2)
[2023-08-12] MEDS: ONDANSETRON 4MG 2ML VIAL IV ONE (07:01)
[2023-08-12] MEDS: PIPERACILLIN/TAZOBACTAM SOD 3.375 GM in D5W MINI-BAG PLUS 50 ML IV ONE (07:01)
[2023-08-12 07:43] LABS: CK-MB VALUE MASS 8.2 NG/ML (<3.6)
[2023-08-12 07:44] LABS: MB/CK RELATIVE INDEX 1.09 (< OR =4)
[2023-08-12] MEDS ORDERED: HOME MED LIST COMPLETE! XX SCH (08:20)
[2023-08-12] MEDS ORDERED: MOM 30ML SUSPENSION UDC PO PRN (10:05)
[2023-08-12] MEDS ORDERED: ONDANSETRON 4MG 2ML VIAL IV PRN (10:05)
[2023-08-12] MEDS: NS 1,000 ML IV SCH (10:40)
[2023-08-12] MEDS: MORPHINE 2 MG/ML 1ML VIAL IV PRN (10:47)
[2023-08-12 12:00] VITALS: BP 134/88; TEMP 98.8; O2SAT 98
[2023-08-12] MEDS: KCL 10MEQ/100ML SWI (KRUN) 10 MEQ in IV 1 EA IV SCH (13:11)
[2023-08-12] MEDS: POTASSIUM CHLORIDE 10MEQ SR TABLET PO ONE (15:27)
[2023-08-12] MEDS: ONDANSETRON 4MG 2ML VIAL IV PRN (15:45)
[2023-08-12 16:00] VITALS: BP 146/86; TEMP 98.9; O2SAT 98
[2023-08-12] MEDS: MORPHINE 2 MG/ML 1ML VIAL IV ONE (17:03)
[2023-08-12 17:50] LABS: BLOOD UREA NITROGEN 24 MG/DL (9-23); CALCIUM LEVEL 8.7 MG/DL (8.5-10.1); CARBON DIOXIDE LEVEL 28 MMOL/L (20-31); CHLORIDE LEVEL 101 MMOL/L (98-107); CREATININE FOR GFR 0.99 MG/DL (0.70-1.30); GLOMERULAR FILTRATION RATE > 60.0 (>60); GLUCOSE, FASTING 126 MG/DL (60-100); MAGNESIUM LEVEL 2.1 MG/DL (1.8-2.4); POTASSIUM SERUM 4.1 MMOL/L (3.5-5.1); SODIUM LEVEL 136 MMOL/L (136-145)
[2023-08-12] MEDS ORDERED: PROMETHAZINE 25 MG TAB PO PRN (19:45)
[2023-08-12 20:00] VITALS: BP 148/90; TEMP 98.6; O2SAT 98
[2023-08-13] MEDS: MORPHINE 2 MG/ML 1ML VIAL IV PRN (01:21)
[2023-08-13] MEDS: ACETAMINOPHEN TAB 650MG DOSE (2X325MG) PO PRN (03:26)
[2023-08-13 04:00] VITALS: BP 148/78; TEMP 98.9; O2SAT 98
[2023-08-13] MEDS: NICOTINE 21MG/24HR 1 EA TRANSDERMAL TD ONE (04:53)
[2023-08-13 05:10] LABS: BASO % 0.3 % (0.0-1.0); EOS # 0.1 10^3/uL (0.0-0.5); EOS % 0.5 % (0.0-3.0); HEMATOCRIT 41.6 % (42.0-52.0); LYMPH # 2.6 10^3/uL (1.5-5.0); LYMPH % 18.4 % (24.0-44.0); MEAN CORPUSCULAR HEMOGLOBIN 31.6 pg (27.0-33.0); MEAN CORPUSCULAR HGB CONC 34.4 g/dl (32.0-36.5); MONO # 1.3 10^3/uL (0.0-0.8); MONO % 9.2 % (2.0-8.0); NEUTROPHILS % 71.2 % (36.0-66.0); PLATELET COUNT, AUTOMATED 379 10^3/uL (150-450); RED BLOOD COUNT 4.52 10^6/uL (4.30-6.10)
[2023-08-13 05:11] LABS: HEMOGLOBIN 14.3 g/dl (13.5-17.5)
[2023-08-13 05:42] LABS: BLOOD UREA NITROGEN 16 MG/DL (9-23); CALCIUM LEVEL 8.4 MG/DL (8.5-10.1); CARBON DIOXIDE LEVEL 28 MMOL/L (20-31); CHLORIDE LEVEL 102 MMOL/L (98-107); CREATININE FOR GFR 0.88 MG/DL (0.70-1.30); GLOMERULAR FILTRATION RATE > 60.0 (>60); GLUCOSE, FASTING 128 MG/DL (60-100); POTASSIUM SERUM 3.8 MMOL/L (3.5-5.1); SODIUM LEVEL 137 MMOL/L (136-145)
[2023-08-13 08:00] VITALS: BP 127/86; TEMP 98; O2SAT 98
[2023-08-13] MEDS: ENOXAPARIN 40MG/0.4ML SYRINGE (J1650 PER 10MG) SC SCH (09:32)
[2023-08-13] MEDS: PANTOPRAZOLE 40MG VIAL IV SCH (09:32)
[2023-08-13] MEDS: LOMOTIL 2.5MG/0.025MG TABLET PO ONE (09:32)
[2023-08-13] MEDS: MAALOX 30 ML SUSP *UDC PO PRN ×2 (09:32→15:01)
[2023-08-13 12:00] VITALS: BP 125/85; TEMP 98.4; O2SAT 98
[2023-08-13 20:00] VITALS: BP 148/88; TEMP 99; O2SAT 100
[2023-08-13] MEDS: NICOTINE 21MG/24HR 1 EA TRANSDERMAL TD SCH (23:00)
[2023-08-14 04:00] VITALS: BP 125/76; TEMP 97.6; O2SAT 98
[2023-08-14] MEDS: CALCIUM CARBONATE 500 MG CHEW U/D PO ONE (05:50)
[2023-08-14 08:30] VITALS: BP 157/89; TEMP 98.3; O2SAT 100
[2023-08-14] MEDS ORDERED: PROT1TAB2 PO (08:42)
[2023-08-14] MEDS ORDERED: SUCR1SS PO (08:43)
[2023-08-14] MEDS ORDERED: ONDA4TAB6 PO (08:45)
[2023-08-14 09:19] LABS: BASO # 0.1 10^3/uL (0.0-0.2); BASO % 0.6 % (0.0-1.0); EOS # 0.1 10^3/uL (0.0-0.5); EOS % 0.5 % (0.0-3.0); HEMATOCRIT 38.7 % (42.0-52.0); HEMOGLOBIN 13.1 g/dl (13.5-17.5); LYMPH # 1.9 10^3/uL (1.5-5.0); LYMPH % 19.3 % (24.0-44.0); MEAN CORPUSCULAR HEMOGLOBIN 31.4 pg (27.0-33.0); MEAN CORPUSCULAR HGB CONC 33.9 g/dl (32.0-36.5); MEAN CORPUSCULAR VOLUME 92.8 fl (80.0-96.0); MONO # 0.8 10^3/uL (0.0-0.8); MONO % 8.3 % (2.0-8.0); NEUTROPHILS # 7.1 10^3/uL (1.5-8.5); PLATELET COUNT, AUTOMATED 301 10^3/uL (150-450); RED BLOOD COUNT 4.17 10^6/uL (4.30-6.10)
== END 2023-08-14 09:18 | disposition home or self-care (01) ==
LOC: M ED 04:13 → M ED INP 10:03 → M ICU 11:56
PROVIDERS: ADMIT Student in an Organized Health Care Education/Training Program; ATTEND Student in an Organized Health Care Education/Training Program
DX: N17.9 Acute kidney failure, unspecified (principal); R11.2 Nausea with vomiting, unspecified; E87.6 Hypokalemia; F14.129 Cocaine abuse with intoxication, unspecified; R10.13 Epigastric pain; D72.829 Elevated white blood cell count, unspecified; F12.10 Cannabis abuse, uncomplicated; F17.210 Nicotine dependence, cigarettes, uncomplicated; Z80.9 Family history of malignant neoplasm, unspecified
CPT/HCPCS: 36415; 74176; 80048; 80076; 81001; 82550; 82553; 83605; 83690; 83735; 84484; 85025; 87040; 93005; 93041; 96361; 96365; 96372; 96375; 96376; 99285; C9113; J1650; J2405; J2543

== ENCOUNTER 2023-11-01 07:54 | Inpatient (IN) | payer OTHER ==
[~2023-11-01] VITALS: Ht 172.7 cm; Wt 59.9 kg
[~2023-11-01 07:54] MED LIST changes: +ONDA-282 PO; -ONDA4TAB6 PO; +PROT1TAB2 PO; +SUCR1SS PO
[2023-11-01 09:15] LABS: BASO # 0.1 10^3/uL (0.0-0.2); BASO % 0.3 % (0.0-1.0); LYMPH # 2.1 10^3/uL (1.5-5.0); LYMPH % 7.4 % (24.0-44.0); MEAN CORPUSCULAR HEMOGLOBIN 31.4 pg (27.0-33.0); MEAN CORPUSCULAR HGB CONC 35.8 g/dl (32.0-36.5); MEAN CORPUSCULAR VOLUME 87.8 fl (80.0-96.0); MONO # 1.9 10^3/uL (0.0-0.8); MONO % 6.8 % (2.0-8.0); NEUTROPHILS # 24.3 10^3/uL (1.5-8.5); NEUTROPHILS % 84.6 % (36.0-66.0); PLATELET COUNT, AUTOMATED 484 10^3/uL (150-450); WHITE BLOOD COUNT 28.7 10^3/uL (4.0-10.0)
[2023-11-01 09:16] LABS: HEMATOCRIT 50.3 % (42.0-52.0); RED BLOOD COUNT 5.73 10^6/uL (4.30-6.10)
[2023-11-01 09:36] LABS: ALBUMIN 5.8 G/DL (3.2-5.2); BILIRUBIN,DIRECT 0.2 MG/DL (<0.4); BILIRUBIN,TOTAL 0.7 MG/DL (0.3-1.2); CALCIUM LEVEL 11.2 MG/DL (8.5-10.1); CREATININE FOR GFR 2.82 MG/DL (0.70-1.30); GLOMERULAR FILTRATION RATE 26.4 (>60); POTASSIUM SERUM 3.8 MMOL/L (3.5-5.1); TOTAL PROTEIN 9.6 G/DL (5.7-8.2)
[2023-11-01] MEDS: NS 2,050 ML in IV 1 EA IV ONE (10:06)
[2023-11-01 10:41] LABS: INR 1.14; PARTIAL THROMBOPLASTIN TIME 32.4 SECONDS (24.8-34.2); PROTHROMBIN TIME 14.3 SECONDS (12.5-14.5)
[2023-11-01] MEDS: ACETAMINOPHEN *IV* 500 MG in IV 1 EA IV ONE (10:44)
[2023-11-01 10:54] LABS: MAGNESIUM LEVEL 2.5 MG/DL (1.8-2.4)
[2023-11-01 10:57] LABS: CK-MB VALUE MASS 6.6 NG/ML (<3.6); MB/CK RELATIVE INDEX 1.26 (< OR =4)
[2023-11-01] MEDS ORDERED: HOME MED LIST COMPLETE! XX SCH (11:30)
[2023-11-01] MEDS: METOCLOPRAMIDE INJ 10MG/2ML VIAL IV ONE (11:58)
[2023-11-01 12:14] LABS: CK-MB VALUE MASS 6.8 NG/ML (<3.6); MB/CK RELATIVE INDEX 1.28 (< OR =4)
[2023-11-01] MEDS ORDERED: ONDANSETRON 4MG 2ML VIAL IV PRN (12:45)
[2023-11-01] MEDS: NS 1,000 ML IV SCH (13:19)
[2023-11-01] MEDS ORDERED: PROMETHAZINE 25MG/ML 1ML VIAL IM PRN (13:25)
[2023-11-01 13:51] LABS: URIC ACID 8.9 MG/DL (3.7-9.2)
[2023-11-01] MEDS: HEPARIN SOD (PORCINE) 5000UNITS/ML 1ML VIAL/SYRINGE SC SCH (14:00)
[2023-11-01 14:04] LABS: AMPHETAMINES LEVEL URINE NEGATIVE (NEGATIVE); BARBITURATES URINE NEGATIVE (NEGATIVE); BENZODIAZEPINES URINE NEGATIVE (NEGATIVE); COCAINE METABOLITE URINE NEGATIVE (NEGATIVE)
[2023-11-01 14:05] LABS: METHADONE URINE NEGATIVE (NEGATIVE); OPIATES URINE NEGATIVE (NEGATIVE); PHENCYCLIDINE URINE NEGATIVE (NEGATIVE)
[2023-11-01 14:07] LABS: CANNABINOIDS URINE POSITIVE (NEGATIVE)
[2023-11-01 14:09] LABS: PHOSPHORUS LEVEL 5.8 MG/DL (2.5-4.9)
[2023-11-01] MEDS: PANTOPRAZOLE 40MG VIAL IV SCH (14:46)
[2023-11-01] MEDS: NICOTINE 21MG/24HR 1 EA TRANSDERMAL TD SCH (14:46)
[2023-11-01] MEDS: SUCRALFATE SUSP 1GM/10ML UD PO SCH (14:47)
[2023-11-01 20:45] VITALS: BP 121/62; TEMP 98.9; O2SAT 99
[2023-11-02 03:41] VITALS: BP 120/71; TEMP 98.6; O2SAT 100
[2023-11-02 06:38] LABS: HEMATOCRIT 40.6 % (42.0-52.0); HEMOGLOBIN 13.8 g/dl (13.5-17.5); MEAN CORPUSCULAR HEMOGLOBIN 31.3 pg (27.0-33.0); MEAN CORPUSCULAR VOLUME 92.1 fl (80.0-96.0); PLATELET COUNT, AUTOMATED 334 10^3/uL (150-450); RED BLOOD COUNT 4.41 10^6/uL (4.30-6.10); WHITE BLOOD COUNT 12.1 10^3/uL (4.0-10.0)
[2023-11-02 06:39] LABS: BLOOD UREA NITROGEN 23 MG/DL (9-23); CALCIUM LEVEL 8.5 MG/DL (8.5-10.1); CARBON DIOXIDE LEVEL 24 MMOL/L (20-31); CHLORIDE LEVEL 108 MMOL/L (98-107); CREATININE FOR GFR 0.91 MG/DL (0.70-1.30); GLOMERULAR FILTRATION RATE > 60.0 (>60); GLUCOSE, FASTING 97 MG/DL (60-100); POTASSIUM SERUM 4.2 MMOL/L (3.5-5.1); SODIUM LEVEL 138 MMOL/L (136-145)
[2023-11-02] MEDS ORDERED: PROM25TA22 PO (10:08)
[2023-11-02] MEDS ORDERED: ONDA-83 PO (10:08)
== END 2023-11-02 11:40 | disposition home or self-care (01) | DRG 469 ==
LOC: EDBD 07:54 → M ED 07:54 → M ED INP 12:42 → M MSPAV 11-02 03:34
PROVIDERS: ADMIT Internal Medicine; ATTEND Internal Medicine
DX: N17.9 Acute kidney failure, unspecified (principal); E87.1 Hypo-osmolality and hyponatremia; D75.1 Secondary polycythemia; E86.0 Dehydration; R11.2 Nausea with vomiting, unspecified; D72.829 Elevated white blood cell count, unspecified; D75.838 Other thrombocytosis; F17.200 Nicotine dependence, unspecified, uncomplicated; K29.70 Gastritis, unspecified, without bleeding; K31.89 Other diseases of stomach and duodenum

== ENCOUNTER → 2023-11-09 | Outpatient (CLI) | payer OTHER ==
[~2023-11-09] MED LIST changes: +ONDA-83 PO; +PROM25TA22 PO
[2023-11-09 14:49] LABS: CHOLESTEROL RISK RATIO 3.43 (<5); HDL CHOLESTEROL 48.3 MG/DL (>40); LDL CHOLESTEROL 104.5 MG/DL (<100); NON-HDL-C 117.7 MG/DL
[2023-11-09 14:51] LABS: THYROID STIMULATING HORMONE 2.996 uIU/ML (0.55-4.78)
[2023-11-09 15:19] LABS: HEMOGLOBIN A1c 5.4 % (4.0-6.0)
== END ==
LOC: M PLALAB 10:27
PROVIDERS: ATTEND Student in an Organized Health Care Education/Training Program
DX: Z13.29 Encounter for screening for other suspected endocrine disorder (principal)

== ENCOUNTER 2023-11-10 19:36 | Emergency (ER) | payer OTHER ==
[~2023-11-10] VITALS: Ht 172.7 cm; Wt 66.0 kg
[2023-11-10 19:43] VITALS: TEMP 98.4
[2023-11-10] MEDS: ONDANSETRON 4MG ORAL DISINTEGRATING TAB PO ONE (19:55)
[2023-11-10 22:20] LABS: BASO # 0.1 10^3/uL (0.0-0.2); BASO % 0.3 % (0.0-1.0); HEMATOCRIT 48.2 % (42.0-52.0); HEMOGLOBIN 16.8 g/dl (13.5-17.5); LYMPH # 1.7 10^3/uL (1.5-5.0); LYMPH % 6.5 % (24.0-44.0); MEAN CORPUSCULAR HEMOGLOBIN 31.8 pg (27.0-33.0); MEAN CORPUSCULAR HGB CONC 34.9 g/dl (32.0-36.5); MEAN CORPUSCULAR VOLUME 91.1 fl (80.0-96.0); MONO # 1.1 10^3/uL (0.0-0.8); MONO % 4.2 % (2.0-8.0); NEUTROPHILS # 22.6 10^3/uL (1.5-8.5); PLATELET COUNT, AUTOMATED 451 10^3/uL (150-450); RED BLOOD COUNT 5.29 10^6/uL (4.30-6.10); WHITE BLOOD COUNT 25.7 10^3/uL (4.0-10.0)
[2023-11-10 22:55] LABS: BILIRUBIN,DIRECT 0.2 MG/DL (<0.4); BILIRUBIN,TOTAL 0.6 MG/DL (0.3-1.2); CALCIUM LEVEL 10.8 MG/DL (8.5-10.1); CREATININE FOR GFR 1.49 MG/DL (0.70-1.30); GLOMERULAR FILTRATION RATE 55.1 (>60); POTASSIUM SERUM 4.5 MMOL/L (3.5-5.1); TOTAL PROTEIN 8.5 G/DL (5.7-8.2)
[2023-11-10] MEDS ORDERED: ISOVUE-370 76% 100ML VIAL As Ordered ONE (23:35)
[2023-11-10] MEDS: KETOROLAC 30 MG/ML 1ML VIAL IV ONE (23:54)
[2023-11-10] MEDS: NS 1,000 ML IV ONE (23:54)
[2023-11-10] MEDS: HALOPERIDOL LACTATE 5MG/ML VIAL IV ONE (23:54)
[2023-11-11 03:51] VITALS: O2SAT 98
[2023-11-11 04:30] VITALS: BP 107/66
== END 2023-11-11 05:09 | disposition home or self-care (01) ==
LOC: M ED 19:36 → EDBD 19:36 → M ED 11-11 05:09
DX: R11.15 Cyclical vomiting syndrome unrelated to migraine (principal); F17.210 Nicotine dependence, cigarettes, uncomplicated; F12.10 Cannabis abuse, uncomplicated; Z79.899 Other long term (current) drug therapy
CPT/HCPCS: 74177; 80048; 80076; 83690; 85025; 87486; 87581; 87633; 87798; 96361; 96374; 99284; J1630; J1885; Q9967

== ENCOUNTER 2023-12-24 18:30 | Inpatient (IN) | payer OTHER ==
[~2023-12-24] VITALS: Ht 172.7 cm; Wt 62.0 kg
[2023-12-24 20:00] VITALS: BP 136/84; TEMP 99.4; O2SAT 94
[2023-12-24] MEDS ORDERED: UNRESOLVED CLARIFICATION ENTRY XX STA (20:30)
[2023-12-24] MEDS ORDERED: NS 1,000 ML IV SCH (20:30)
[2023-12-24 21:00] LABS: VENOUS BASE EXCESS -8.9 (-2.0-2.0); VENOUS HCO3 14.6 MMOL/L (23.0-27.0); VENOUS O2 SATURATION 84.8 % (60.0-80.0); VENOUS PARTIAL PRESSURE CO2 26.6 mmHg (38.0-50.0); VENOUS PARTIAL PRESSURE O2 51.3 mmHg (30.0-50.0); VENOUS PH 7.356 UNITS (7.330-7.430); VENOUS STANDARD HCO3 17.2 MMOL/L; VENOUS TOTAL CO2 15.4 MMOL/L (24.0-28.0)
[2023-12-24 21:05] LABS: HEMOGLOBIN 15.4 g/dl (13.5-17.5); MEAN CORPUSCULAR HEMOGLOBIN 31.4 pg (27.0-33.0); MEAN CORPUSCULAR HGB CONC 35.8 g/dl (32.0-36.5); MEAN CORPUSCULAR VOLUME 87.8 fl (80.0-96.0); PLATELET COUNT, AUTOMATED 362 10^3/uL (150-450); WHITE BLOOD COUNT 22.4 10^3/uL (4.0-10.0)
[2023-12-24] MEDS ORDERED: HOME MED LIST COMPLETE! XX SCH (21:10)
[2023-12-24] MEDS: PANTOPRAZOLE 40MG VIAL IV SCH (21:16)
[2023-12-24] MEDS: LR 1,000 ML IV ONE (21:16)
[2023-12-24 21:39] LABS: ALBUMIN 3.9 G/DL (3.2-5.2); BILIRUBIN,TOTAL 0.6 MG/DL (0.3-1.2); CALCIUM LEVEL 8.3 MG/DL (8.5-10.1); CREATININE FOR GFR 5.75 MG/DL (0.70-1.30); GLOMERULAR FILTRATION RATE 11.6 (>60); MAGNESIUM LEVEL 2.4 MG/DL (1.8-2.4); POTASSIUM SERUM 4.5 MMOL/L (3.5-5.1); TOTAL PROTEIN 6.8 G/DL (5.7-8.2)
[2023-12-24] MEDS ORDERED: SODIUM BICARBONATE 8.4% INJ 50ML SYRINGE IV STA (21:51)
[2023-12-24 22:13] LABS: PROCALCITONIN 0.44 ng/ml
[2023-12-24 23:00] VITALS: BP 146/83; TEMP 98.4; O2SAT 95
[2023-12-24] MEDS: SODIUM BICARBONATE 150 MEQ in D5W 1,000 ML IV SCH (23:13)
[2023-12-25 03:45] VITALS: BP 128/64; TEMP 98.2; O2SAT 95
[2023-12-25] MEDS: ONDANSETRON 4MG 2ML VIAL IV PRN (04:43)
[2023-12-25] MEDS: ACETAMINOPHEN *IV* 1,000 MG in IV 1 EA IV PRN (04:50)
[2023-12-25] MEDS: SUCRALFATE SUSP 1GM/10ML UD PO ONE (05:12)
[2023-12-25 05:56] LABS: HEMOGLOBIN 14.4 g/dl (13.5-17.5); MEAN CORPUSCULAR HEMOGLOBIN 31.2 pg (27.0-33.0); MEAN CORPUSCULAR VOLUME 86.6 fl (80.0-96.0); PLATELET COUNT, AUTOMATED 351 10^3/uL (150-450); RED BLOOD COUNT 4.62 10^6/uL (4.30-6.10); WHITE BLOOD COUNT 16.5 10^3/uL (4.0-10.0)
[2023-12-25] MEDS: HEPARIN SOD (PORCINE) 5000UNITS/ML 1ML VIAL/SYRINGE SC SCH (05:56)
[2023-12-25 06:20] LABS: ALBUMIN 3.6 G/DL (3.2-5.2); CALCIUM LEVEL 8.5 MG/DL (8.5-10.1); CREATININE FOR GFR 3.67 MG/DL (0.70-1.30); GLOMERULAR FILTRATION RATE 19.5 (>60); PHOSPHORUS LEVEL 4.9 MG/DL (2.5-4.9); POTASSIUM SERUM 3.8 MMOL/L (3.5-5.1)
[2023-12-25 08:00] VITALS: BP 107/68; TEMP 98.6; O2SAT 96
[2023-12-25] MEDS ORDERED: MORPHINE 2 MG/ML 1ML VIAL IV PRN (08:15)
[2023-12-25] MEDS: NICOTINE 21MG/24HR 1 EA TRANSDERMAL TD ONE (11:20)
[2023-12-25 12:21] VITALS: BP 119/74; TEMP 98.4; O2SAT 97
[2023-12-25] MEDS: MORPHINE 2 MG/ML 1ML VIAL IV PRN (12:33)
[2023-12-25] MEDS: LACTATED RINGER'S 1000 ML IV ONE (16:06)
[2023-12-25 16:46] VITALS: BP 128/71; TEMP 99.5; O2SAT 98
[2023-12-25] MEDS: LR 1,000 ML IV SCH (16:52)
[2023-12-25 19:45] VITALS: BP 122/72; TEMP 99.7; O2SAT 98
[2023-12-25 23:57] VITALS: BP 113/70; TEMP 98; O2SAT 96
[2023-12-26 03:51] VITALS: BP 100/60; TEMP 98.1; O2SAT 98
[2023-12-26 05:03] LABS: BLOOD UREA NITROGEN 33 MG/DL (9-23); CALCIUM LEVEL 8.1 MG/DL (8.5-10.1); CARBON DIOXIDE LEVEL 34 MMOL/L (20-31); CHLORIDE LEVEL 108 MMOL/L (98-107); GLOMERULAR FILTRATION RATE 44.3 (>60); GLUCOSE, FASTING 89 MG/DL (60-100); MAGNESIUM LEVEL 2.5 MG/DL (1.8-2.4); POTASSIUM SERUM 3.7 MMOL/L (3.5-5.1); SODIUM LEVEL 141 MMOL/L (136-145)
[2023-12-26 07:34] LABS: BASO % 0.4 % (0.0-1.0); EOS # 0.1 10^3/uL (0.0-0.5); EOS % 1.2 % (0.0-3.0); HEMATOCRIT 37.3 % (42.0-52.0); HEMOGLOBIN 12.8 g/dl (13.5-17.5); LYMPH # 2.2 10^3/uL (1.5-5.0); LYMPH % 19.7 % (24.0-44.0); MEAN CORPUSCULAR HEMOGLOBIN 31.6 pg (27.0-33.0); MEAN CORPUSCULAR HGB CONC 34.3 g/dl (32.0-36.5); MEAN CORPUSCULAR VOLUME 92.1 fl (80.0-96.0); MONO # 1.4 10^3/uL (0.0-0.8); MONO % 12.7 % (2.0-8.0); NEUTROPHILS # 7.4 10^3/uL (1.5-8.5); NEUTROPHILS % 65.7 % (36.0-66.0); PLATELET COUNT, AUTOMATED 292 10^3/uL (150-450); RED BLOOD COUNT 4.05 10^6/uL (4.30-6.10); WHITE BLOOD COUNT 11.2 10^3/uL (4.0-10.0)
[2023-12-26 08:00] VITALS: BP 122/75; TEMP 97.5; O2SAT 98
[2023-12-26] MEDS: NICOTINE 21MG/24HR 1 EA TRANSDERMAL TD SCH (10:04)
== END 2023-12-26 12:30 | disposition home or self-care (01) | DRG 469 ==
LOC: M PCU 20:00
PROVIDERS: ADMIT Student in an Organized Health Care Education/Training Program; ATTEND Student in an Organized Health Care Education/Training Program
DX: N17.9 Acute kidney failure, unspecified (principal); E87.20 Acidosis, unspecified; E87.1 Hypo-osmolality and hyponatremia; E86.0 Dehydration; R11.15 Cyclical vomiting syndrome unrelated to migraine; F17.200 Nicotine dependence, unspecified, uncomplicated; R74.01 Elevation of levels of liver transaminase levels

== ENCOUNTER 2024-03-31 05:53 | Emergency (ER) | payer MEDICAID, OTHER, SELFPAY ==
[~2024-03-31] VITALS: Ht 172.7 cm; Wt 65.9 kg
[2024-03-31 06:49] LABS: BASO % 0.3 % (0.0-1.0); EOS % 0.3 % (0.0-3.0); HEMATOCRIT 50.1 % (42.0-52.0); HEMOGLOBIN 18.3 g/dl (13.5-17.5); LYMPH % 15.7 % (24.0-44.0); MEAN CORPUSCULAR HEMOGLOBIN 31.1 pg (27.0-33.0); MEAN CORPUSCULAR HGB CONC 36.5 g/dl (32.0-36.5); MEAN CORPUSCULAR VOLUME 85.1 fl (80.0-96.0); MONO # 1.3 10^3/uL (0.0-0.8); MONO % 9.8 % (2.0-8.0); NEUTROPHILS # 9.5 10^3/uL (1.5-8.5); NEUTROPHILS % 73.4 % (36.0-66.0); PLATELET COUNT, AUTOMATED 522 10^3/uL (150-450); RED BLOOD COUNT 5.89 10^6/uL (4.30-6.10); WHITE BLOOD COUNT 12.9 10^3/uL (4.0-10.0)
[2024-03-31 07:08] LABS: ALBUMIN 4.9 G/DL (3.2-5.2); BILIRUBIN,DIRECT 0.2 MG/DL (<0.4); BILIRUBIN,TOTAL 0.9 MG/DL (0.3-1.2); TOTAL PROTEIN 8.7 G/DL (5.7-8.2)
[2024-03-31] MEDS: LIDOCAINE 2% 5ML JELLY UROJET TOP ONE (07:15)
[2024-03-31] MEDS: diphenhydrAMINE 50MG/ML VIAL IV ONE (08:06)
[2024-03-31] MEDS: NS (Normal Saline) 0.9% 1,000 ML IV ONE ×3 (08:06→14:41)
[2024-03-31] MEDS: HALOPERIDOL LACTATE 5MG/ML VIAL IV ONE (08:06)
[2024-03-31] MEDS: KCL 10MEQ/100ML SWI (KRUN) 10 MEQ in IV 1 EA IV ONE (08:07)
[2024-03-31 08:16] LABS: AMPHETAMINES LEVEL URINE NEGATIVE (NEGATIVE); BARBITURATES URINE NEGATIVE (NEGATIVE); BENZODIAZEPINES URINE NEGATIVE (NEGATIVE); COCAINE METABOLITE URINE NEGATIVE (NEGATIVE); METHADONE URINE NEGATIVE (NEGATIVE); OPIATES URINE NEGATIVE (NEGATIVE); PHENCYCLIDINE URINE NEGATIVE (NEGATIVE)
[2024-03-31 08:18] LABS: ETHYL ALCOHOL (ETHANOL) < 0.003 % (0.000-0.010)
[2024-03-31 08:20] LABS: SALICYLATE LEVEL < 3.0 MG/DL (<30)
[2024-03-31 08:21] LABS: BLOOD UREA NITROGEN 63 MG/DL (9-23); CALCIUM LEVEL 11.1 MG/DL (8.5-10.1); CANNABINOIDS URINE POSITIVE (NEGATIVE); CARBON DIOXIDE LEVEL 25 MMOL/L (20-31); CHLORIDE LEVEL 89 MMOL/L (98-107); CREATININE FOR GFR 1.46 MG/DL (0.70-1.30); GLOMERULAR FILTRATION RATE 56.4 (>60); GLUCOSE, FASTING 134 MG/DL (60-100); SODIUM LEVEL 128 MMOL/L (136-145)
[2024-03-31 16:43] LABS: BLOOD UREA NITROGEN 33 MG/DL (9-23); CALCIUM LEVEL 8.4 MG/DL (8.5-10.1); CARBON DIOXIDE LEVEL 23 MMOL/L (20-31); CHLORIDE LEVEL 103 MMOL/L (98-107); CREATININE FOR GFR 0.81 MG/DL (0.70-1.30); GLOMERULAR FILTRATION RATE > 60.0 (>60); GLUCOSE, FASTING 102 MG/DL (60-100); SODIUM LEVEL 135 MMOL/L (136-145)
[2024-03-31] MEDS ORDERED: PROC25SU27 PR (16:54)
[2024-03-31] MEDS ORDERED: PROC10TA5 PO (16:54)
[2024-03-31 17:13] VITALS: BP 135/72; TEMP 97; O2SAT 99
== END 2024-03-31 17:25 | disposition home or self-care (01) ==
LOC: M ED 05:53
DX: E86.0 Dehydration (principal); F12.188 Cannabis abuse with other cannabis-induced disorder; F10.10 Alcohol abuse, uncomplicated; I45.10 Unspecified right bundle-branch block; Z79.899 Other long term (current) drug therapy
CPT/HCPCS: 80047; 80048; 80076; 80143; 80307; 81001; 82077; 83690; 85025; 93005; 93041; 96361; 96365; 96375; 99285; J1200; J1630

== ENCOUNTER 2025-01-21 08:49 | Emergency (ER) | payer OTHER, SELFPAY ==
[~2025-01-21] VITALS: Ht 172.7 cm; Wt 56.8 kg
[~2025-01-21 08:49] MED LIST changes: -IBUP-1022 PO; +IBUP600T42 PO; +PROC10TA5 PO; +PROC25SU27 PR
[2025-01-21] MEDS: NS (Normal Saline) 0.9% 1,000 ML IV ONE (09:36)
[2025-01-21] MEDS ORDERED: HOME MED LIST COMPLETE! XX SCH (09:40)
[2025-01-21 09:52] LABS: BASO # 0.1 10^3/uL (0.0-0.2); BASO % 0.4 % (0.0-1.0); EOS # 0.0 10^3/uL (0.0-0.5); EOS % 0.2 % (0.0-3.0); LYMPH # 2.0 10^3/uL (1.5-5.0); LYMPH % 11.3 % (24.0-44.0); MONO # 1.6 10^3/uL (0.0-0.8); MONO % 8.9 % (2.0-8.0); NEUTROPHILS # 13.8 10^3/uL (1.5-8.5); NEUTROPHILS % 78.6 % (36.0-66.0); PLATELET COUNT, AUTOMATED 469 10^3/uL (150-450)
[2025-01-21 10:03] LABS: ALT/SGPT 21.0 U/L (7.0-40); AST/SGOT 33.0 U/L (<34)
[2025-01-21] MEDS ORDERED: ISOVUE-370 76% 100 ML VIAL As Ordered ONE (10:08)
[2025-01-21] MEDS: ONDANSETRON 4MG 2ML VIAL IV ONE (10:15)
[2025-01-21] MEDS: KETOROLAC 30 MG/ML 1 ML VIAL IV ONE (10:15)
[2025-01-21 11:08] LABS: RSV AMPLIFICATION NEGATIVE (NEGATIVE)
[2025-01-21 12:30] VITALS: TEMP 96.7
[2025-01-21] MEDS: SUCRALFATE 1 GM TAB PO ONE (12:42)
[2025-01-21] MEDS: PANTOPRAZOLE 40MG VIAL IV ONE (12:42)
[2025-01-21] MEDS: MAGIC MOUTHWASH 5 ML ORAL SYRINGE SS ONE (12:42)
[2025-01-21 12:45] VITALS: BP 161/94; O2SAT 99
[2025-01-21 13:19] LABS: MAGNESIUM LEVEL 3.9 MG/DL (1.8-2.4); PHOSPHORUS LEVEL 3.7 MG/DL (2.5-4.9)
== END 2025-01-21 13:16 | disposition left against medical advice (07) ==
LOC: M ED 08:49
DX: R11.2 Nausea with vomiting, unspecified (principal); R19.7 Diarrhea, unspecified; E87.1 Hypo-osmolality and hyponatremia; E83.51 Hypocalcemia; J93.11 Primary spontaneous pneumothorax; F17.210 Nicotine dependence, cigarettes, uncomplicated; F12.10 Cannabis abuse, uncomplicated; Z53.9 Procedure and treatment not carried out, unspecified reason
CPT/HCPCS: 71046; 71250; 74177; 80047; 80076; 83690; 83735; 84100; 85025; 87637; 96361; 96374; 96375; 99284; J1885; J2405; J2470; J2765; Q9967